=== PATIENT | female | born 1995 | race Caucasian/White ===

== ENCOUNTER → 2020-02-05 15:39 | Outpatient (CLI) | payer OTHER, SELFPAY | PROVIDERS: PCP Family Medicine; Referring Provider Family Medicine; Visit Provider Family Medicine | DX: R09.89 Other specified symptoms and signs involving the circulatory and respiratory systems (principal) | CPT/HCPCS: 87635; U0003 ==

== ENCOUNTER → 2020-03-29 08:59 | Outpatient (CLI) | payer OTHER, SELFPAY ==
[2020-03-29 10:36] LABS: Hepatitis B Surface Antibody Reactive; Rubella IgG Reactive (Nonreactive)
[2020-04-01 05:06] LABS: QNTFERON TB Mitogen Value > 10.00 IU/mL (.); QNTFERON TB Nil Value 0.01 IU/mL (.); QNTFERON TB1+ Ag Value 0.01 IU/mL (.); QNTFERON TB2+ Ag Value 0.01 IU/mL (.)
[2020-04-01 07:46] LABS: Mumps Antibody,IgG < 9.0 AU/mL (Immune >10.9); QNTIFERON TB Positive Criteria Negative (Negative); Rubeola IgG Ab < 13.5 AU/mL (Immune >16.4); V-Zoster IgG (Immunity) 1316 index (Immune >165)
== END ==
PROVIDERS: PCP Family Medicine; Visit Provider Family Medicine
DX: Z71.89 Other specified counseling (principal)
CPT/HCPCS: 36415; 86480; 86706; 86735; 86762; 86765; 86787

== ENCOUNTER → 2020-04-11 11:25 | Outpatient (CLI) | payer OTHER, SELFPAY ==
[2020-04-13 07:13] LABS: SARS-COV-2 TOTAL ABS Nonreactive (Nonreactive)
== END ==
PROVIDERS: PCP Family Medicine; Referring Provider Family Medicine; Visit Provider Family Medicine
DX: R09.89 Other specified symptoms and signs involving the circulatory and respiratory systems (principal)
CPT/HCPCS: 36415; 86769

== ENCOUNTER → 2020-06-07 08:32 | Outpatient (CLI) | payer OTHER, SELFPAY ==
[2020-06-09 15:03] LABS: Mumps Antibody,IgG 22.6 AU/mL (Immune >10.9)
== END ==
PROVIDERS: PCP Family Medicine; Referring Provider Family Medicine; Visit Provider Family Medicine
DX: Z01.84 Encounter for antibody response examination (principal)
CPT/HCPCS: 36415; 86735; 86765